=== PATIENT | male | born 1955 | race American Indian/Alaskan Native ===

== ENCOUNTER 2016-10-18 09:43 | Emergency (ER) | payer MEDICARE ==
[2016-10-18 10:27] VITALS: BP 131/83
--- NOTE | 2016-10-18 12:00 | Emergency Department Report ---
ED Extremity Problem HPI - General Chief complaint: Fall Stated complaint: FALL/RT KNEE PAIN Time Seen by Provider: 10/18/16 11:48 Source: patient Mode of arrival: Ambulatory Limitations: Physical Limitation - History of Present Illness Initial comments: PT states he was walking yesterday, tripped and fell. PT states he bent his R knee all the way back. PT states the point of impact was "everything" PT states he is having R leg pain that is not relieved with Aleve. PT states he has been told that he needs a knee replacement and he has not been able to bend his R knee fully for 2 years. PT states yesterday is the first time his knee bent all the way and he thinks he tore something. PT denies head injury, loc or neck and back pain MD Complaint: joint paint Onset/Timin -: Sudden, days(s) Time: 09:00 Location: right, lower extremity, knee History of Same: Yes -: No fever Radiation: proximal, distal Severity scale (0 -10): 10 Consistency: constant Worsens with: weight bearing, walking, palpation Associated Symptoms: denies other symptoms - Related Data Previous Rx's Medication Instructions Recorded Last Taken Type HYDROcodone/APAP 5-325 [Zavalla 1 each PO Q6HR PRN #12 tablet 10/18/16 Unknown Rx 5/325] Allergies Allergy/AdvReac Type Severity Reaction Status Date / Time codeine AdvReac Itching Verified 10/18/16 10:22 ED Review of Systems ROS: Stated complaint: FALL/RT KNEE PAIN Other details as noted in HPI Comment: All other systems reviewed and negative Cardiovascular: denies: chest pain Gastrointestinal: denies: abdominal pain Musculoskeletal: joint swelling, other (R lower leg pain, R thigh pain, R knee pain ). denies: back pain Neurological: abnormal gait (due to R leg injury ). denies: headache ED Past Medical Hx - Past Medical History Hx Hypertension: Yes Hx Diabetes: Yes (BORDERLINE-NO MEDS) Hx of Cancer: Yes (PROSTATE) Additional medical history: HIGH CHOLESTEROL - Surgical History Additional Surgical History: PROSTATE REMOVED - Social History Smoking Status: Current Every Day Smoker Substance Use Type: None - Medications Home Medications: Home Medications Medication Instructions Recorded Confirmed Last Taken Type HYDROcodone/APAP 5-325 [Zavalla 1 each PO Q6HR PRN #12 tablet 04/19/17 Unknown Rx 5/325] ED Physical Exam - General Limitations: No Limitations General appearance: alert - Head Head exam: Present: atraumatic, normocephalic, normal inspection - Eye Eye exam: Present: normal appearance, PERRL. Absent: conjunctival injection - ENT ENT exam: Present: normal exam, normal external ear exam - Neck Neck exam: Present: normal inspection, full ROM. Absent: tenderness - Respiratory Respiratory exam: Present: normal lung sounds bilaterally. Absent: respiratory distress - Cardiovascular Cardiovascular Exam: Present: normal rhythm, bradycardia - GI/Abdominal GI/Abdominal exam: Present: soft. Absent: tenderness - Extremities Exam Extremities exam: Present: normal inspection (to bue ), tenderness, pedal edema , joint swelling - Expanded Lower Extremity Exam Right Upper Leg exam: Present: normal inspection. Absent: tenderness, swelling Knee exam: Present: tenderness, swelling. Absent: full ROM, deformity, erythema Lower Leg exam: Present: tenderness, swelling. Absent: ecchymosis, deformity, dislocation Ankle exam: Present: tenderness, swelling. Absent: full ROM Neuro vascular tendon exam: Present: no vascular compromise. Absent: sensory deficit Gait: Positive: not tested/not observed (due to pt's pain. pt presented to ED with crutches. ) - Back Exam Back exam: Present: normal inspection, full ROM. Absent: tenderness, CVA tenderness (R), CVA tenderness (L), muscle spasm, paraspinal tenderness, vertebral tenderness - Neurological Exam Neurological exam: Present: alert, oriented X3 - Psychiatric Psychiatric exam: Present: normal affect, normal mood - Skin Skin exam: Present: warm, dry, intact, normal color ED Course Vital Signs 10/18/16 10/18/16 10:24 12:23 Temperature 98.3 F Pulse Rate 51 L Respiratory 17 18 Rate Blood Pressure 131/83 O2 Sat by Pulse 98 Oximetry - Reevaluation(s) Reevaluation #1: 10/18/16 11:56 PT aware of plan of care. No questions at this time. Reevaluation #2: 10/18/16 13:12 PT states pain decreased sp Zavalla. PT aware of XR result and need for orthopedic follow up. PT aware he may require an outpt MRI. PT has no questions at this time. 10/18/16 Tech applied knee immobilizer prior to dc. PT NVI - Pulse Oximetry Interpretation Digit-Finger Initial Pulse Oximetry Readin Actions Taken: none ED Medical Decision Making - Radiology Data Radiology results: report reviewed XR R tib/ fib- nap XR R knee- No fx, R knee large joint effusion - Differential Diagnosis strain, fracture, oa, effusion Critical Care Time: No Critical care attestation.: If time is entered above; I have spent that time in minutes in the direct care of this critically ill patient, excluding procedure time. ED Disposition Clinical Impression: Effusion, right knee Fall Qualifiers: Encounter type: initial encounter Qualified Code(s): W19.XXXA - Unspecified fall, initial encounter Right knee injury Qualifiers: Encounter type: initial encounter Qualified Code(s): S89.91XA - Unspecified injury of right lower leg, initial encounter Disposition: DISCHARGED TO HOME OR SELFCARE Is pt being admited?: No Does the pt Need Aspirin: No Condition: Stable Instructions: Osteoarthritis (ED), Knee Effusion (ED), RICE Therapy (ED) Additional Instructions: No driving or ETOH after taking Zavalla for pain Continue taking Aleve Prescriptions: HYDROcodone/APAP 5-325 [Zavalla 5/325] 1 each PO Q6HR PRN #12 tablet PRN Reason: Pain Referrals: PRIMARY CARE, [Primary Care Provider] - 3-5 Days RENETTA PEOPLES MD [Staff Physician] - 3-5 Days Time of Disposition: 13:17
[2016-10-18] MEDS: NORCO 5/325 PO ONE (12:23)
--- NOTE | 2016-10-18 12:53 | XRay Report ---
RIGHT KNEE, 3 VIEWS History: Pain after fall, swelling. Findings: Mild osteoarthritic changes are identified in the medial compartment and patellofemoral space. There is a large joint effusion which extends to the suprapatellar bursa. No evidence for fracture or osteochondral defect. Impression: Osteoarthritic changes. No acute bony injury is detected. Large joint effusion. If internal derangement is suspected, MRI right knee without contrast is recommended.
--- NOTE | 2016-10-18 12:53 | XRay Report ---
RIGHT TIBIA/FIBULA: History: Pain after fall AP and lateral views of the right tibia/fibula demonstrate normal mineralization and contours for this patient's age. No destructive changes are noted and the adjacent soft tissues are normal. IMPRESSION: Unremarkable right tibia/fibula.
== END 2016-10-18 13:36 | disposition home or self-care (01) ==
LOC: ED 09:43
DX: S89.91XA Unspecified injury of right lower leg, initial encounter (principal); M25.461 Effusion, right knee; I10 Essential (primary) hypertension; E11.9 Type 2 diabetes mellitus without complications; E78.00 Pure hypercholesterolemia, unspecified; F17.200 Nicotine dependence, unspecified, uncomplicated; Z85.46 Personal history of malignant neoplasm of prostate; W18.30XA Fall on same level, unspecified, initial encounter; Y93.9 Activity, unspecified; Y92.9 Unspecified place or not applicable; Y99.9 Unspecified external cause status
CPT/HCPCS: 99283